=== PATIENT | female | born 1960 | race Caucasian/White ===

== ENCOUNTER → 2016-07-25 | Outpatient (CLI) | payer MEDICAID | LOC: LABWHC1 13:58 | PROVIDERS: ATTEND Family Medicine | DX: E03.9 Hypothyroidism, unspecified (principal) | CPT/HCPCS: 36415; 84439; 84443 ==

== ENCOUNTER → 2016-07-28 | Outpatient (CLI) | payer MEDICAID ==
[2016-07-28 12:19] LABS: Prolactin 11.6 ng/mL (3.0-18.6)
== END | disposition home or self-care (01) ==
LOC: RADXRMAIN 11:14
PROVIDERS: ATTEND Internal Medicine Endocrinology, Diabetes & Metabolism
DX: R53.83 Other fatigue (principal)
CPT/HCPCS: 82533; 84146

== ENCOUNTER → 2016-07-28 | Outpatient (CLI) | payer SELFPAY ==
--- NOTE | 2016-07-28 14:57 | CT ---
EXAMINATION TYPE: CT heart w calcium score DATE OF EXAM: 07/28/2016 11:11 AM COMPARISON: NONE HISTORY: Screening for cardiovascular disorder. 213.9 CT DLP: 44.8 mGycm Automated exposure control for dose reduction was used. CT CALCIUM SCORING Coronary calcium is a marker for plaque (fatty deposits) in a blood vessel or atherosclerosis (harden ing of the arteries). The presence and amount of calcium detected in a coronary artery by the CT sca n, indicates the presence and amount of atherosclerotic plaque. These calcium deposits appear years before the development of heart disease symptoms such as chest pain and shortness of breath. A calcium score is computed for each of the coronary arteries based upon the volume and density of th e calcium deposits. This can be referred to as your calcified plaque burden. It does not correspond directly to the percentage of narrowing in the artery but does correlate with the severity of the un derlying coronary atherosclerosis. PROCEDURE TECHNIQUE - Prospective Gating was used. Slice thickness: 3mm. Density threshold (HU): 130, Pixel threshold: 3, Algorithm: discrete. RESULTS Region: LM Calcium Score (Agatston): 0 Volume (mm3): 0 Mass (g): 0 Region: RCA Calcium Score ([place]at[place]): 0 Volume (mm3): 0 Mass (g): 0 Region: LAD Calcium Score (Agatston): 0 Volume (mm3): 0 Mass (g): 0 Region: CX Calcium Score (Agatston): 0 Volume (mm3): 0 Mass (g): 0 Total: Calcium Score (Agatston): 0 Volume (mm3): 0 Mass (g): 0 TOTAL CALCIUM SCORE: 0 OTHER: The ascending thoracic aorta at the level of the main pulmonary artery is 3.2 cm. The main pu lmonary artery at the bifurcation is 2.5 cm. IMPRESSION: Calcium Score: 0 Implication: No identifiable plaque. Risk of Coronary Artery Disease: Very low, generally less than 5%.
== END | disposition home or self-care (01) ==
LOC: RADXRMAIN 10:22
PROVIDERS: ATTEND Radiology Diagnostic Radiology
DX: Z53.9 Procedure and treatment not carried out, unspecified reason (principal)

== ENCOUNTER → 2016-09-26 | Outpatient (CLI) | payer MEDICAID | END | disposition home or self-care (01) | LOC: LABWHC1 11:12 | PROVIDERS: ATTEND Internal Medicine Endocrinology, Diabetes & Metabolism | DX: Z53.9 Procedure and treatment not carried out, unspecified reason (principal) ==

== ENCOUNTER → 2016-09-29 | Outpatient (CLI) | payer MEDICAID ==
[2016-09-29 08:43] LABS: CH 32.4; CHCM 33.9; HCT 43.1 % (34.0-46.0); HDW 2.26; HGB 14.7 gm/dL (11.4-16.0); MCH 32.7 pg (25.0-35.0); MCHC 34.1 g/dL (31.0-37.0); MCV 96.1 fL (80.0-100.0); Mean Platelet Volume 7.6; RBC 4.49 m/uL (3.80-5.40); WBC 7.4 k/uL (3.8-10.6)
[2016-09-29 08:53] LABS: ALT 24 U/L (9-52); AST 22 U/L (14-36); Alkaline Phosphatase 97 U/L (38-126); Anion Gap 8 mmol/L; Blood Urea Nitrogen 14 mg/dL (7-17); Calcium 9.3 mg/dL (8.4-10.2); Carbon Dioxide 29 mmol/L (22-30); Chloride 105 mmol/L (98-107); Glucose 92 mg/dL (74-99); Non-African American GFR(MDRD) >60 (>60 ml/min/1.73 sqM); Potassium 4.2 mmol/L (3.5-5.1); Sodium 142 mmol/L (137-145); Total Bilirubin 0.8 mg/dL (0.2-1.3); Total Protein 6.9 g/dL (6.3-8.2)
[2016-09-29 10:43] LABS: Prolactin 7.4 ng/mL (3.0-18.6)
[2016-09-29 11:16] LABS: Vitamin B12 427 pg/mL (239-931)
== END | disposition home or self-care (01) ==
LOC: RADXRMAIN 08:05
PROVIDERS: ATTEND Internal Medicine Endocrinology, Diabetes & Metabolism
DX: R53.83 Other fatigue (principal)
CPT/HCPCS: 80053; 82024; 82533; 82607; 84146; 85027

== ENCOUNTER → 2016-10-10 | Outpatient (CLI) | payer MEDICAID ==
[~2016-10-10] MED LIST: COSYNTROPIN 0.25 MG VIAL IVP NR; SODIUM CHLORIDE 0.9% 250 ML in EMPTY BAG 1 BAG IV PRN; SODIUM CHLORIDE 0.9% 500 ML in EMPTY BAG 1 BAG IV PRN
[2016-10-10 14:48] VITALS: BP 109/64; PULSE 69; RESP 16; TEMP 98.1
== END ==
LOC: PROCWHC3 14:28
PROVIDERS: ATTEND Internal Medicine Endocrinology, Diabetes & Metabolism
DX: E03.8 Other specified hypothyroidism (principal); R53.83 Other fatigue
CPT/HCPCS: 82533; 82024; 96374; J0834

== ENCOUNTER → 2017-01-05 | Outpatient (CLI) | payer MEDICAID | END | disposition home or self-care (01) | LOC: RADXRMAIN 08:14 | PROVIDERS: ATTEND Internal Medicine Endocrinology, Diabetes & Metabolism | DX: E03.8 Other specified hypothyroidism (principal); R53.83 Other fatigue | CPT/HCPCS: 84439; 84443; 84481 ==

== ENCOUNTER → 2017-06-23 | Outpatient (CLI) | payer MEDICAID ==
--- NOTE | 2017-06-26 09:16 | MM ---
Reason for exam: screening (asymptomatic). Last mammogram was performed 1 year and 7 months ago. History: Patient is postmenopausal and had first child at age 32. Family history of breast cancer in sister at age 64. Benign right breast aspiration of the right breast, February 01, 2011. Benign right breast aspiration additional of the right breast, February 01, 2011. Benign right breast aspiration additional of the right breast, February 01, 2011. Benign left breast needle localization of the left breast, March 20, 2009. Benign left US cyst aspiration of the left breast, March 09, 2009. Benign US left guided VAD of the left breast, March 09, 2009. Took hormonal contraceptives for 10 years beginning at age 19. Taking unspecified hormones for 13 years beginning at age 33. Physical Findings: A clinical breast exam by your physician is recommended on an annual basis and results should be correlated with mammographic findings. MG 3D Screening Mammo W/Cad Bilateral CC and MLO view(s) were taken. Prior study comparison: November 25, 2015, bilateral MG 3d screening mammo w/cad. May 13, 2014, bilateral MG screening mammo w CAD. The breast tissue is heterogeneously dense. This may lower the sensitivity of mammography. There is no discrete abnormality. ASSESSMENT: Benign, BI-RAD 2 RECOMMENDATION: Routine screening mammogram of both breasts in 1 year.
== END ==
LOC: RADMAMWWP 10:16
PROVIDERS: ATTEND Obstetrics & Gynecology
DX: Z12.31 Encounter for screening mammogram for malignant neoplasm of breast (principal)
CPT/HCPCS: 77063; 77067

== ENCOUNTER 2017-11-28 08:59 | Emergency (ER) | payer MEDICAID ==
[2017-11-28 09:06] VITALS: RESP 16
[2017-11-28] MEDS ORDERED: SODIUM CHLORIDE 0.9% 500 ML IV STA (09:26)
[2017-11-28] MEDS ORDERED: LIDOCAINE 4% CREAM 5 GM TUBE TOPICAL ONE (09:26)
--- NOTE | 2017-11-28 09:31 | ED ---
Abdominal Pain HPI - General Chief Complaint: Abdominal Pain Stated Complaint: Abd/rectal pain Time Seen by Provider: 11/28/17 09:17 Source: patient, RN notes reviewed Mode of arrival: ambulatory Limitations: no limitations - History of Present Illness Initial Comments: 56-year-old female presented to the emergency Department chief complaint of rectal pain. She states she's been having increasing rectal bleeding the last couple weeks. She did see her PCP yesterday who gave her Anusol suppositories. She states she's been using this but symptoms keep worsening. She states the pain is so unbearable. She states she has deep rectal pain and mild external pain. Patient states that she's always had some issues going to the bathroom states that she pushes on her buttocks region and states that more stool usually comes out she states also feels like a slight pocket. Patient has been evaluated past by colonoscopy 3 years ago and by specialists for possible fissures, fistulas. Patient states there is no major findings. Patient has no history of colon issues. Patient denies any fever, chills. She states she has had intermittent rectal bleeding with bowel movements. - Related Data Home Medications Medication Instructions Recorded Confirmed Docusate [Colace] 100 mg PO HS 11/28/17 11/28/17 Levothyroxine Sodium [Tirosint] 100 mcg PO HS 11/28/17 11/28/17 Allergies Allergy/AdvReac Type Severity Reaction Status Date / Time No Known Allergies Allergy Verified 11/28/17 09:18 Review of Systems ROS Statement: Those systems with pertinent positive or pertinent negative responses have been documented in the HPI. ROS Other: All systems not noted in ROS Statement are negative. Past Medical History Past Medical History: Thyroid Disorder Additional Past Medical History / Comment(s): Change in Bowel Habits, Incontinence of Stool at times. yasmeen, arthritis History of Any Multi-Drug Resistant Organisms: None Reported Past Surgical History: Uterine Ablation Additional Past Surgical History / Comment(s): eye sx age 2 and 4,. cataract sx bilat eyes multiple times. colonoscopy 2013 and 2010. Past Anesthesia/Blood Transfusion Reactions: No Reported Reaction Past Psychological History: Anxiety Smoking Status: Current every day smoker Past Alcohol Use History: None Reported Past Drug Use History: None Reported - Past Family History Sister(s) Family Medical History: Cancer (breast cancer) Mother Family Medical History: No Reported History General Exam Limitations: no limitations General appearance: alert, in no apparent distress Head exam: Present: atraumatic, normocephalic, normal inspection Eye exam: Present: normal appearance, PERRL, EOMI. Absent: scleral icterus, conjunctival injection, periorbital swelling ENT exam: Present: normal exam, mucous membranes moist Respiratory exam: Present: normal lung sounds bilaterally. Absent: respiratory distress, wheezes, rales, rhonchi, stridor Cardiovascular Exam: Present: regular rate, normal rhythm, normal heart sounds. Absent: systolic murmur, diastolic murmur, rubs, gallop, clicks GI/Abdominal exam: Present: soft, normal bowel sounds. Absent: distended, tenderness, guarding, rebound, rigid Rectal exam: Present: hemorrhoids, other (Exam performed with Michelle RN). Absent: normal inspection (Mild erythema, excoriation possible small fissure noted) Skin exam: Present: warm, dry, intact, normal color. Absent: rash Course Vital Signs 11/28/17 09:03 Temperature 97.9 F Pulse Rate 84 Respiratory 16 Rate Blood Pressure 114/71 O2 Sat by Pulse 96 Oximetry - Reevaluation(s) Reevaluation #1: 11/28/17 10:48 Patient reevaluated and updated on results. She did state that the lidocaine cream helped tremendously. She was updated on CT results findings of stool impaction. Medical Decision Making - Medical Decision Making 56-year-old female presented for rectal pain. Patient does have some irritation from excoriation. She'll continue Anusol and lidocaine cream. Patient does have evidence of impacted stool. We did discuss digital disimpaction though she is too uncomfortable at this time to have this performed. Patient will be discharged advised to continue softeners or suppositories. - Lab Data Result diagrams: 11/28/17 09:40 11/28/17 09:40 Lab Results 11/28/17 11/28/17 11/28/17 Range/Units 09:40 09:40 09:40 WBC 6.6 (3.8-10.6) k/uL RBC 4.51 (3.80-5.40) m/uL Hgb 13.9 (11.4-16.0) gm/dL Hct 43.0 (34.0-46.0) % MCV 95.4 (80.0-100.0) fL MCH 30.8 (25.0-35.0) pg MCHC 32.3 (31.0-37.0) g/dL RDW 13.1 (11.5-15.5) % Plt Count 243 (150-450) k/uL Neutrophils % 53 % Lymphocytes % 37 % Monocytes % 5 % Eosinophils % 2 % Basophils % 1 % Neutrophils # 3.5 (1.3-7.7) k/uL Lymphocytes # 2.5 (1.0-4.8) k/uL Monocytes # 0.3 (0-1.0) k/uL Eosinophils # 0.1 (0-0.7) k/uL Basophils # 0.1 (0-0.2) k/uL Sodium 139 (137-145) mmol/L Potassium 4.2 (3.5-5.1) mmol/L Chloride 106 (98-107) mmol/L Carbon Dioxide 26 (22-30) mmol/L Anion Gap 7 mmol/L BUN 9 (7-17) mg/dL Creatinine 0.70 (0.52-1.04) mg/dL Est GFR (CKD-EPI)AfAm >90 (>60 ml/min/1.73 sqM) Est GFR (CKD-EPI)NonAf >90 (>60 ml/min/1.73 sqM) Glucose 83 (74-99) mg/dL Calcium 9.3 (8.4-10.2) mg/dL Total Bilirubin 0.7 (0.2-1.3) mg/dL AST 24 (14-36) U/L ALT 32 (9-52) U/L Alkaline Phosphatase 83 (38-126) U/L Total Protein 6.8 (6.3-8.2) g/dL Albumin 4.0 (3.5-5.0) g/dL Amylase 84 (30-110) U/L Lipase 291 (23-300) U/L Urine Color Yellow Urine Appearance Clear (Clear) Urine pH 6.0 (5.0-8.0) Ur Specific [place] 1.015 (1.001-1.035) Urine Protein Negative (Negative) Urine Glucose (UA) Trace H (Negative) Urine Ketones Negative (Negative) Urine Blood Small H (Negative) Urine Nitrite Negative (Negative) Urine Bilirubin Negative (Negative) Urine Urobilinogen <2.0 (<2.0) mg/dL Ur Leukocyte Esterase Negative (Negative) Urine RBC 6 H (0-5) /hpf Urine WBC <1 (0-5) /hpf Ur Squamous Epith Cells <1 (0-4) /hpf Hyaline Casts 1 (0-2) /lpf Urine Mucus Rare H (None) /hpf Disposition Clinical Impression: Rectal pain, Fecal impaction in rectum Disposition: HOME SELF-CARE Condition: Stable Instructions: Rectal Pain (ED) Additional Instructions: Please return to the Emergency Department if symptoms worsen or any other concerns. Is patient prescribed a controlled substance at d/c from ED?: No Referrals: Dennis Arboleda MD [Primary Care Provider] - 1-2 days Time of Disposition: 10:50
[2017-11-28 09:55] LABS: Appearance,Urine Clear (Clear); Basophils # (A) 0.1 k/uL (0-0.2); Basophils % (A) 1 %; Bilirubin,Urine Negative (Negative); Blood,Urine Small (Negative); Color,Urine Yellow; Eosinophils # (A) 0.1 k/uL (0-0.7); Eosinophils % (A) 2 %; Glucose,Urine (UA) Trace (Negative); HGB 13.9 gm/dL (11.4-16.0); Hyaline Casts,Urine 1 /lpf (0-2); Ketones,Urine Negative (Negative); Leukocyte Esterase,Urine Negative (Negative); Lymphocytes # (A) 2.5 k/uL (1.0-4.8); Lymphocytes % (A) 37 %; MCH 30.8 pg (25.0-35.0); MCHC 32.3 g/dL (31.0-37.0); MCV 95.4 fL (80.0-100.0); Mean Platelet Volume 6.9; Monocytes # (A) 0.3 k/uL (0-1.0); Monocytes % (A) 5 %; Mucus,Urine Rare /hpf; Neutrophils # (A) 3.5 k/uL (1.3-7.7); Neutrophils % (A) 53 %; Nitrite,Urine Negative (Negative); Platelet Count 243 k/uL (150-450); Protein,Urine Negative (Negative); RBC 4.51 m/uL (3.80-5.40); RBC,Urine 6 /hpf (0-5); RDW 13.1 % (11.5-15.5); Specific Gravity,Urine 1.015 (1.001-1.035); Squamous Epithelial Cell,Urine <1 /hpf (0-4); Urobilinogen,Urine <2.0 mg/dL (<2.0); WBC 6.6 k/uL (3.8-10.6); WBC,Urine <1 /hpf (0-5)
[2017-11-28 10:06] LABS: ALT 32 U/L (9-52); AST 24 U/L (14-36); Alkaline Phosphatase 83 U/L (38-126); Amylase 84 U/L (30-110); Anion Gap 7 mmol/L; Blood Urea Nitrogen 9 mg/dL (7-17); Calcium 9.3 mg/dL (8.4-10.2); Carbon Dioxide 26 mmol/L (22-30); Chloride 106 mmol/L (98-107); Glucose 83 mg/dL (74-99); Lipase 291 U/L (23-300); Potassium 4.2 mmol/L (3.5-5.1); Sodium 139 mmol/L (137-145); Total Bilirubin 0.7 mg/dL (0.2-1.3); Total Protein 6.8 g/dL (6.3-8.2)
--- NOTE | 2017-11-28 10:32 | CT ---
EXAMINATION TYPE: CT abdomen pelvis w con DATE OF EXAM: 11/28/2017 COMPARISON: 01/29/2015 INDICATION: Rectal pain, occasional bloody stool DLP: 1286 mGycm, Automated exposure control for dose reduction was used. CONTRAST: 100 mL of Isovue 300. Study performed without Oral Contrast TECHNIQUE: Axial images were obtained from above the diaphragm to the pubic rami in the axial plane a t 5 mm thick sections. Reconstructed images are reviewed on the computer in the coronal plane. FINDINGS: Limited CT sections are obtained the lung bases. The lung bases are clear. CT ABDOMEN: Liver: Normal Spleen: Normal Pancreas: Normal Adrenal glands: The adrenal glands are normal. Gallbladder: Normal Kidneys: No masses are evident. No hydronephrosis is present. No cysts are present. Delayed images were obtained through the kidneys, which remain unremarkable. Aorta: Vascular calcification is within the aorta. Inferior vena cava: Normal. CT PELVIS: There is some small bowel loops which are slightly prominent and may has some mild wall thickening wi thin the mid to right lower quadrant. Some similar appearances in the left upper quadrant proximal je junum. Correlate for jejunitis. This is an interval change from comparison. Fecal debris is at the le carola the rectum. Appendix: Normal as visualized. No adjacent inflammatory changes. Urinary bladder: Normal. Genitourinary structures: Uterus is unremarkable. Adnexal regions are clear. No free fluid is within the pelvis. Osseous structures: No suspicious lytic or sclerotic lesions. IMPRESSIONS: 1. There is some mild wall thickening with mild prominence of proximal jejunum. Correlate for jejuni tis.
[2017-11-28 11:32] VITALS: BP 133/62; PULSE 71; TEMP 98.2
== END 2017-11-28 11:33 | disposition home or self-care (01) ==
LOC: EC 08:59
DX: K56.41 Fecal impaction (principal); E07.9 Disorder of thyroid, unspecified; F17.200 Nicotine dependence, unspecified, uncomplicated; Z98.890 Other specified postprocedural states; Z79.899 Other long term (current) drug therapy
CPT/HCPCS: 36415; 80053; 82150; 83690; 85025; 81001; 74177; 99284; 96360; Q9967

== ENCOUNTER → 2018-01-18 | Outpatient (CLI) | payer MEDICAID | END | disposition home or self-care (01) | LOC: LAB 08:08 | PROVIDERS: ATTEND Internal Medicine Endocrinology, Diabetes & Metabolism | DX: E03.8 Other specified hypothyroidism (principal) | CPT/HCPCS: 84443 ==

== ENCOUNTER → 2018-08-16 | Outpatient (CLI) | payer MEDICAID | END | disposition home or self-care (01) | LOC: LAB 11:03 | PROVIDERS: ATTEND Internal Medicine Endocrinology, Diabetes & Metabolism | DX: E03.8 Other specified hypothyroidism (principal) | CPT/HCPCS: 84443 ==

== ENCOUNTER → 2019-03-11 | Outpatient (CLI) | payer MEDICAID | LOC: LAB 08:00 | PROVIDERS: ATTEND Internal Medicine Endocrinology, Diabetes & Metabolism | DX: E03.8 Other specified hypothyroidism (principal) | CPT/HCPCS: 84443 ==

== ENCOUNTER → 2019-06-25 | Outpatient (CLI) | payer MEDICAID ==
--- NOTE | 2019-06-25 08:09 | XR ---
EXAMINATION TYPE: XR ankle complete RT, XR foot complete RT DATE OF EXAM: 06/25/2019 CLINICAL HISTORY: Lateral pain. TECHNIQUE: Frontal, lateral and oblique images of the right ankle and foot are obtained. COMPARISON: None. FINDINGS: There is no acute fracture/dislocation evident in the right ankle. The ankle mortise appe ars within normal limits. Mild diffuse subcutaneous edema. Occasional phlebolith. Small to moderate s ize superior and inferior calcaneal spurs. There is no acute fracture or dislocation evident in the right foot. The joint spaces in the right f oot are preserved. Accessory navicular bone noted near medial base of navicular. Some flexion of the toes is present. Mild diffuse subcutaneous edema. IMPRESSION: As above.
== END | disposition home or self-care (01) ==
LOC: RADXRMAIN 07:38
PROVIDERS: ATTEND Family Medicine
DX: M77.31 Calcaneal spur, right foot (principal); R60.0 Localized edema; M21.271 Flexion deformity, right ankle and toes; S93.401A Sprain of unspecified ligament of right ankle, initial encounter

== ENCOUNTER → 2019-09-02 | Outpatient (CLI) | payer MEDICAID | END | disposition home or self-care (01) | LOC: RADXRMAIN 12:20 | PROVIDERS: ATTEND Internal Medicine Endocrinology, Diabetes & Metabolism | DX: E03.8 Other specified hypothyroidism (principal) | CPT/HCPCS: 84443 ==

== ENCOUNTER → 2019-12-24 | Outpatient (CLI) | payer MEDICAID ==
[2019-12-24 14:23] VITALS: BP 97/61; PULSE 72; RESP 18; TEMP 98.1
--- NOTE | 2019-12-24 16:31 | P.HPOB ---
History of Present Illness H&P Date: 12/24/19 Chief Complaint: The patient is here for her routine gynecologic exam and ma mmogram. This is a 59-year-old 013 with an LMP of 2007. The patient continues to have some vulvar irritation intermittently. Recently she has noticed a vaginal odor and pruritus of the vulva. She denies any unusual discharge at this time. She has a history of lichen sclerosus of the vulva as well as a history of vulvar candidiasis that improved with antifungal medication. She is otherwise without complaints and denies any postmenopausal bleeding.. Review of Systems The patient has gained 8 pounds over the last year. She denies respiratory, cardiac, or G.I. problems. Past Medical History Past Medical History: Thyroid Disorder Additional Past Medical History / Comment(s): hypothyroidism, arthritis. 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 Lichen sclerosis of the vulva. History of Any Multi-Drug Resistant Organisms: None Reported Past Surgical History: Uterine Ablation Additional Past Surgical History / Comment(s): eye sx age 2 and 4, endometrial ablation in 2007. Left breast lumpectomy which was benign, cataract sx bilat eyes multiple times, colonoscopy 2013 and 2010. 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 - Past Family History Sister(s) Family Medical History: Cancer Additional Family Medical History / Comment(s): Breast cancer. Mother Family Medical History: No Reported History Medications and Allergies Home Medications Medication Instructions Recorded Confirmed Type Docusate [Colace] 100 mg PO HS 11/28/17 12/24/19 History Levothyroxine Sodium [Tirosint] 100 mcg PO HS 11/28/17 12/24/19 History Escitalopram [Lexapro] 20 mg PO DAILY 09/18/18 12/24/19 History Triamcinolone 0.1% Ointment 1 applic TOPICAL BID PRN #30 gm 09/18/18 12/24/19 Rx [Kenalog 0.1% Ointment] metroNIDAZOLE [Flagyl] 500 mg PO BID 7 Days #14 tab 10/03/18 12/24/19 Rx Allergies Allergy/AdvReac Type Severity Reaction Status Date / Time No Known Allergies Allergy Verified 12/24/19 14:04 Exam Vital Signs Temp Pulse Resp BP Pulse Ox 12/24/19 14:10 98.1 F 72 18 97/61 96 Intake and Output 12/24/19 12/24/19 12/24/19 06:59 14:59 22:59 Other: Weight 87.09 kg Height 5 feet 9 inches, weight 192 pounds, BMI 28.4. This is a well-developed well-nourished white female who is alert and oriented times 3 in no acute distress. HEENT: Within normal limits. NECK: Supple without mass or thyromegaly. CHEST AND LUNGS: Clear to auscultation. HEART: Regular rate and rhythm. BREASTS: Are without mass or discharge. AXILLARY EXAM: Negative for adenopathy. BACK: Negative for CVA tenderness. ABDOMEN: Soft, nontender, without palpable masses. PELVIC EXAM: External genitalia reveals minimal pallor with mild generalized vulvar inflammation and mild erythema. There are no focal lesions. Cervix and vagina appear normal with mild atrophy. There is no unusual discharge. There is no evidence of prolapse. The uterus is midposition, nongravid size and nontender. There are no palpable adnexal masses or tenderness. RECTAL EXAM: Rectovaginal exam is negative for mass or tenderness and is negative for occult blood. EXTREMITIES: Nontender. IMPRESSION: 1. 59-year-old menopausal female with intermittent vulvar pruritus and mild generalized vulvitis. Differential diagnosis includes lichen sclerosis, vaginitis, Kaleigh vaginitis, bacterial vaginosis, or, less likely, trichomoniasis. PLAN: 1. Pap smear was deferred since she had a normal one on 09/18/2018. 2. Self breast awareness was discussed with the patient. 3. Screening mammogram will be done today. 4. Affirm testing has been obtained from the vagina for kaleigh, Gardnerella, and Trichomonas. If these are negative, consider resuming corticosteroid treatment. 5. Osteoporosis prevention was discussed. I have stressed the importance of adequate calcium, vitamin D and regular exercise. Recommended amounts of calcium and vitamin D were also discussed. 6. She was advised to return in one year for her annual well woman exam and as needed.
[2019-12-25 04:56] LABS: Gardnerella Negative (Negative); Source Vagina; Trichomonas Negative (Negative)
--- NOTE | 2019-12-26 10:37 | MM ---
Reason for exam: screening (asymptomatic). Last mammogram was performed 1 year and 3 months ago. History: Patient is postmenopausal and had first child at age 32. Family history of breast cancer in sister at age 64. Benign right breast aspiration of the right breast, February 01, 2011. Benign right breast aspiration additional of the right breast, February 01, 2011. Benign right breast aspiration additional of the right breast, February 01, 2011. Benign left breast needle localization of the left breast, March 20, 2009. Benign left US cyst aspiration of the left breast, March 09, 2009. Benign US left guided VAD of the left breast, March 09, 2009. Took hormonal contraceptives for 10 years beginning at age 19. Taking unspecified hormones for 13 years beginning at age 33. Physical Findings: A clinical breast exam by your physician is recommended on an annual basis and results should be correlated with mammographic findings. MG 3D Screening Mammo W/Cad Bilateral CC and MLO view(s) were taken. Prior study comparison: September 18, 2018, bilateral MG 3d screening mammo w/cad. June 23, 2017, bilateral MG 3d screening mammo w/cad. There are scattered fibroglandular densities. No significant changes when compared with prior studies. ASSESSMENT: Benign, BI-RAD 2 RECOMMENDATION: Routine screening mammogram of both breasts in 1 year.
--- NOTE | 2019-12-26 14:15 | P.PN ---
Progress Note - Text Progress Note Date: 12/26/19 Affirm testing done on 12/24/19 was negative for Kaleigh, Gardnerella, and Trichomonas. The patient was notified by phone. Since previous vulvar biopsy for similar symptoms showed signs of yeast and she had symptomatic improvement with an antifungal agent, will have a trial of Lotrisone cream, BID x 14 days, then only as needed. The prescription was sent electronically to [facility] pharmacy at [facility]. She will call if symptoms do not improve or if problems.
== END | disposition home or self-care (01) ==
LOC: WWCWWP 13:55
PROVIDERS: ATTEND Obstetrics & Gynecology
DX: Z12.31 Encounter for screening mammogram for malignant neoplasm of breast (principal); N76.2 Acute vulvitis; L29.2 Pruritus vulvae
CPT/HCPCS: 77063; 77067; 87480; 87510; 87660

== ENCOUNTER → 2020-05-13 | Outpatient (CLI) | payer MEDICAID | END | disposition home or self-care (01) | LOC: LAB 09:50 | PROVIDERS: ATTEND Internal Medicine Endocrinology, Diabetes & Metabolism | DX: E03.8 Other specified hypothyroidism (principal) | CPT/HCPCS: 84443 ==

== ENCOUNTER → 2020-11-11 | Outpatient (CLI) | payer MEDICAID | END | disposition home or self-care (01) | LOC: LABMAIN 10:38 | PROVIDERS: ATTEND Internal Medicine Endocrinology, Diabetes & Metabolism | DX: E03.8 Other specified hypothyroidism (principal) | CPT/HCPCS: 36415; 84443 ==

== ENCOUNTER → 2021-01-26 | Outpatient (CLI) | payer MEDICAID ==
[2021-01-26 09:49] LABS: Appearance,Urine Clear (Clear); Bacteria,Urine Rare /hpf; Bilirubin,Urine Negative (Negative); Blood,Urine Small (Negative); Color,Urine Light Yellow; Glucose,Urine (UA) Negative (Negative); Ketones,Urine Negative (Negative); Leukocyte Esterase,Urine Negative (Negative); Mucus,Urine Rare /hpf; Nitrite,Urine Negative (Negative); PH, Urine 5.5 (5.0-8.0); Protein,Urine Negative (Negative); RBC,Urine 3 /hpf (0-5); Specific Gravity,Urine 1.012 (1.001-1.035); Urobilinogen,Urine <2.0 mg/dL (<2.0)
[2021-01-26 10:09] LABS: Basophils % (A) 1 %; Eosinophils # (A) 0.1 k/uL (0-0.7); Eosinophils % (A) 2 %; HCT 45.7 % (34.0-46.0); HGB 14.8 gm/dL (11.4-16.0); Lymphocytes # (A) 2.2 k/uL (1.0-4.8); Lymphocytes % (A) 35 %; MCHC 32.4 g/dL (31.0-37.0); MCV 98.9 fL (80.0-100.0); Mean Platelet Volume 8.6; Monocytes # (A) 0.3 k/uL (0-1.0); Monocytes % (A) 4 %; Neutrophils # (A) 3.7 k/uL (1.3-7.7); Neutrophils % (A) 57 %; Platelet Count 234 k/uL (150-450); RBC 4.62 m/uL (3.80-5.40); RDW 12.5 % (11.5-15.5); WBC 6.4 k/uL (3.8-10.6)
[2021-01-26 10:14] LABS: ALT 16 U/L (4-34); AST 26 U/L (14-36); African American GFR (CKD) >90 (>60 ml/min/1.73 sqM); Albumin 3.7 g/dL (3.5-5.0); Alkaline Phosphatase 89 U/L (38-126); Anion Gap 4 mmol/L; Blood Urea Nitrogen 12 mg/dL (7-17); Calcium 9.2 mg/dL (8.4-10.2); Carbon Dioxide 30 mmol/L (22-30); Chloride 104 mmol/L (98-107); Glucose 122 mg/dL (74-99); Non-African American GFR(CKD) >90 (>60 ml/min/1.73 sqM); Sodium 138 mmol/L (137-145); Total Bilirubin 0.9 mg/dL (0.2-1.3); Total Protein 6.6 g/dL (6.3-8.2)
[2021-01-26 11:32] LABS: T4, Free (Free Thyroxine) 1.53 ng/dL (0.78-2.19)
[2021-01-26 20:26] LABS: Chol/HDL Ratio 2.96 Ratio; LDL Cholesterol,Calculated 122.6 mg/dL (0.0-131.0); VLDL Calculation 19.12 mg/dL (5.00-40.00)
== END | disposition home or self-care (01) ==
LOC: RADXRMAIN 07:35
PROVIDERS: ATTEND Family Medicine
DX: Z00.00 Encounter for general adult medical examination without abnormal findings (principal)
CPT/HCPCS: 80053; 80061; 81001; 84439; 84443; 85025

== ENCOUNTER 2021-07-15 07:40 | Emergency (ER) | payer MEDICAID ==
[2021-07-15 07:46] VITALS: RESP 20; TEMP 98.1
--- NOTE | 2021-07-15 08:53 | ED ---
General Adult HPI - General Chief complaint: Extremity Injury, Lower Stated complaint: Rt Leg Pain Time Seen by Provider: 07/15/21 08:23 Source: patient Mode of arrival: ambulatory Limitations: no limitations - History of Present Illness Initial comments: Dictation was produced using [employer] dictation software. please excuse any grammatical, word or spelling errors. Chief Complaint: Patient is a 60-year-old female presents to the emergency department for right gluteus pain. History of Present Illness: 60-year-old female she presents emergency department for 2 days of right gluteus pain. Patient denies any trauma to that area. Patient states when she stands or bears weight on her right hip she has pain that shoots down the posterior aspect of her right lower extremity. Patient states that her symptoms slowly worsened. She denies any pain at rest. She really notices whenever she stands. Patient denies any fever. Denies any symptoms to her right knee or right foot. No constitutional symptoms. The ROS documented in this emergency department record has been reviewed and confirmed by me. Those systems with pertinent positive or negative responses have been documented in the HPI. All other systems are other negative and/or noncontributory. PHYSICAL EXAM: General Impression: Alert and oriented x3, not in acute distress HEENT: Normocephalic atraumatic, extra-ocular movements intact, pupils equal and reactive to light bilaterally, mucous membranes moist. Cardiovascular: Heart regular rate and rhythm Chest: Able to complete full sentences, no retractions, no tachypnea Abdomen: abdomen soft, non-tender, non-distended, no organomegaly Musculoskeletal: Pulses present and equal in all extremities, no peripheral edema Motor: no focal deficits noted Neurological: CN II-XII grossly intact, no focal motor or sensory deficits noted Skin: Intact with no visualized rashes Psych: Normal affect and mood ED course: 60-year-old female presents to the emergency department clinical presentation consistent with sciatica arising from the piriformis. Signs upon arrival are within acceptable limits. Physical examination is benign. Hip x-ray is unremarkable. Patient reevaluated at bedside at 9:40 AM found to be stable medical condition. She does have mild degenerative changes to her right hip and right SI joint. Patient notified of her x-ray results. Patient states she will need a work note for today and tomorrow. Work note provided. Patient advised to follow-up with her PCP for outpatient management of sciatica symptoms. - Related Data Home Medications Medication Instructions Recorded Confirmed Docusate [Colace] 100 mg PO HS 11/28/17 12/24/19 Levothyroxine Sodium [Tirosint] 100 mcg PO HS 11/28/17 12/24/19 Escitalopram [Lexapro] 20 mg PO DAILY 09/18/18 12/24/19 Previous Rx's Medication Instructions Recorded metroNIDAZOLE [Flagyl] 500 mg PO BID 7 Days #14 tab 10/03/18 Clotrimazole/Betamethasone Dip 1 applic TOPICAL BID 14 Days #45 gm 12/26/19 [Lotrisone Cream] Allergies Allergy/AdvReac Type Severity Reaction Status Date / Time No Known Allergies Allergy Verified 07/15/21 07:45 Review of Systems ROS Statement: Those systems with pertinent positive or pertinent negative responses have been documented in the HPI. ROS Other: All systems not noted in ROS Statement are negative. Past Medical History Past Medical History: Thyroid Disorder Additional Past Medical History / Comment(s): hypothyroidism, arthritis. 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 Lichen sclerosis of the vulva. History of Any Multi-Drug Resistant Organisms: None Reported Past Surgical History: Uterine Ablation Additional Past Surgical History / Comment(s): eye sx age 2 and 4, endometrial ablation in 2007. Left breast lumpectomy which was benign, cataract sx bilat e yes multiple times, colonoscopy 2013 and 2010. Past Anesthesia/Blood Transfusion Reactions: No Reported Reaction Past Psychological History: Anxiety Smoking Status: Current every day smoker Past Alcohol Use History: None Reported Past Drug Use History: None Reported - Past Family History Sister(s) Family Medical History: Cancer Additional Family Medical History / Comment(s): Breast cancer. Mother Family Medical History: No Reported History General Exam Limitations: no limitations Course Vital Signs 07/15/21 07:43 Temperature 98.1 F Pulse Rate 98 Respiratory 20 Rate Blood Pressure 95/67 O2 Sat by Pulse 96 Oximetry Disposition Clinical Impression: Sciatica Disposition: HOME SELF-CARE Condition: Good Instructions (If sedation given, give patient instructions): Sciatica (ED) Is patient prescribed a controlled substance at d/c from ED?: No Referrals: Grady Pressley [Primary Care Provider] - 1-2 days
--- NOTE | 2021-07-15 09:35 | XR ---
EXAMINATION TYPE: XR Hip Complete RT DATE OF EXAM: 07/15/2021 Comparison: None Clinical History: 60-year-old female sciatica Findings: Mild degenerative spurring of the right hip. Right-sided pelvic phlebolith. Mild degenerative change right SI joint. No acute fracture, subluxation, dislocation. Some facet arthropathy noted in the lowe r lumbar spine. Impression: Mild degenerative change right hip and right SI joint. No acute osseous abnormality seen.
[2021-07-15 10:02] VITALS: BP 97/65; PULSE 74
== END 2021-07-15 10:02 | disposition home or self-care (01) ==
LOC: EC 07:40
DX: M54.30 Sciatica, unspecified side (principal); E07.9 Disorder of thyroid, unspecified; F17.200 Nicotine dependence, unspecified, uncomplicated; Z79.899 Other long term (current) drug therapy
CPT/HCPCS: 73502; 99283

== ENCOUNTER → 2021-08-17 | Outpatient (CLI) | payer MEDICAID ==
[2021-08-17 14:05] VITALS: BP 114/74; PULSE 79; RESP 18; TEMP 98.4
--- NOTE | 2021-08-17 15:14 | P.HPOB ---
History of Present Illness H&P Date: 08/17/21 Chief Complaint: The patient is here for her routine gynecologic exam and ma mmogram. This is a 60-year-old 013 with an LMP of 2007. The patient has been experiencing more vulvar pruritus. She has a history of lichen sclerosus of the vulva. She has been using clobetasol which has been helpful, but she still has itching. She previously had significant improvement when she was treated for vulvar candidiasis with antifungal medication. In 2019, she seemed to do much better on Lotrisone cream. She had not been using prescription cream until she started using her sisters clobetasol recently. She denies vaginal discharge but has noticed a vaginal odor. Review of Systems The patient has lost 17 pounds over the last year. She has been trying to lose weight. She denies respiratory, cardiac, or G.I. problems. Past Medical History Past Medical History: Thyroid Disorder Additional Past Medical History / Comment(s): hypothyroidism, arthritis. PAST INDUSTRIAL ENGINEERING ANALYST HISTORY: She has no history of STDs. Lichen sclerosis of the vulva. History of Any Multi-Drug Resistant Organisms: None Reported Past Surgical History: Uterine Ablation Additional Past Surgical History / Comment(s): eye sx age 2 and 4, endometrial ablation in 2007. Left breast lumpectomy which was benign, cataract sx bilat eyes multiple times, colonoscopy 2013 and 2010. 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 - Past Family History Sister(s) Family Medical History: Cancer Additional Family Medical History / Comment(s): Breast cancer. Mother Family Medical History: No Reported History Medications and Allergies Home Medications Medication Instructions Recorded Confirmed Type Clotrimazole/Betamethasone Dip 1 applic TOPICAL BID 14 Days #45 gm 12/26/19 08/17/21 Rx [Lotrisone Cream] Levothyroxine Sodium [Synthroid] 100 mcg PO DAILY 08/17/21 08/17/21 History buPROPion HCL [Wellbutrin XL] 300 mg PO DAILY 08/17/21 08/17/21 History Allergies Allergy/AdvReac Type Severity Reaction Status Date / Time No Known Allergies Allergy Verified 08/17/21 13:58 Exam Vital Signs Temp Pulse Resp BP Pulse Ox 08/17/21 14:03 98.4 F 79 18 114/74 94 L Intake and Output 08/16/21 08/17/21 08/17/21 22:59 06:59 14:59 Other: Weight 79.379 kg Height 5 feet 10 inches, weight 175 pounds, BMI 25.1. This is a well-developed well-nourished white female who is alert and oriented times 3 in no acute distress. HEENT: Within normal limits. NECK: Supple without mass or thyromegaly. CHEST AND LUNGS: Clear to auscultation. HEART: Regular rate and rhythm. BREASTS: Are without mass or discharge. AXILLARY EXAM: Negative for adenopathy. BACK: Negative for CVA tenderness. ABDOMEN: Soft, nontender, without palpable masses. PELVIC EXAM: External genitalia reveals mild atrophy with mild generalized erythema and a dry appearance with slight pallor. There are a couple of scratched areas in otherwise no other focal abnormalities. Cervix and vagina appear normal with mild atrophy. There is no unusual discharge. There is no evidence of prolapse. The uterus is midposition, nongravid size and nontender. There are no palpable adnexal masses or tenderness. RECTAL EXAM: Rectovaginal exam is negative for mass or tenderness and is negative for occult blood. EXTREMITIES: Nontender. IMPRESSION: 1. 60-year-old menopausal female with history of lichen sclerosus of the vulva with moderate vulvar pruritus. Differential diagnosis will include lichen sclerosis, Kaleigh vaginitis, bacterial vaginosis, or chronic contact vulvitis. PLAN: 1. Pap smear cotest was performed. 2. Self breast awareness was discussed with the patient. We have also discussed symptoms associated with inflammatory breast cancer. 3. Screening mammogram will be done today. 4. Affirm vaginitis panel was obtained from the vagina. This will be used to check for Kaleigh, Gardnerella , and Trichomonas. 5. The patient will be prescribed Lotrisone cream which she continues twice a day as needed for vulvar itching. She seemed to have done well with this in 2019. I have also recommended that she avoid over washing with soap and to try to avoid scratching. She can also use a thin layer of petroleum jelly as a protective layer once a day. If symptoms are not improving, she was instructed to call and we can put her back on the clobetasol ointment. 6.Osteoporosis prevention was discussed. I have stressed the importance of adequate calcium, vitamin D and regular exercise. Recommended amounts of calcium and vitamin D were also discussed. I have recommended baseline bone density testing. The order slip was given to the patient for this. 7. She has completed her Covid vaccination series and did receive a booster. 8 She was advised to return in one year for her annual well woman exam And as needed.
--- NOTE | 2021-08-18 11:40 | MM ---
Reason for Exam: Screening (asymptomatic). Last mammogram was performed 1 year(s) and 8 month(s) ago. Patient History: Menarche at age 12. First Full-Term at age 32. Late child-bearing (after 30). Postmenopausal. Hormonal Contraceptives for 10 years from age 19 until age 31. 02/01/2011, Benign Cyst Aspiration on the right side. 02/01/2011, Benign Cyst Aspiration on the right side. 02/01/2011, Benign Cyst Aspiration on the right side. 03/20/2009, Benign Excisional Biopsy on the left side. 03/09/2009, Benign Cyst Aspiration on the left side. 03/09/2009, Benign Core Biopsy on the left side. Sister had breast cancer, right, age 64. Risk Values: Columba 5 year model risk: 4.5%. NCI Lifetime model risk: 20.1%. Film Views: Bilateral CC views were taken. Bilateral MLO views were taken. Prior Study Comparison: 06/23/2017 Bilateral Screening Mammogram, [facility]. 09/18/2018 Bilateral Screening Mammogram, [facility]. 12/24/2019 Bilateral Screening Mammogram, [facility]. Tissue Density: The breast tissue is heterogeneously dense. This may lower the sensitivity of mammography. Findings: Analyzed By CAD. Occasional scattered benign-appearing round and punctate calcification bilaterally is redemonstrated. Chronic nodularity anteriorly outer aspect right breast not significantly changed from last 2 mammograms. Benign-appearing bilateral axillary lymph nodes are redemonstrated. No suspicious new mass or worrisome cluster of microcalcification. Overall Assessment: Benign, BI-RAD 2 Management: Screening Mammogram of both breasts in 1 year. A clinical breast exam by your physician is recommended on an annual basis and results should be correlated with mammographic findings.
[2021-08-18 14:06] LABS: Gardnerella Positive (Negative); Source Vagina; Trichomonas Negative (Negative)
--- NOTE | 2021-08-19 11:38 | P.PN ---
Progress Note - Text Progress Note Date: 08/19/21 Affirm vaginitis panel done 08/17/21 was positive for Gardnerella and negative for Kaleigh and Trichomonas. The patient was notified by phone. A/ Bacterial Vaginosis P/ Metronidazole 500mg PO BID x 7d. The e-prescription was sent to [facility] in [facility]. Call if symptoms not improving or if problems.
== END ==
LOC: WWCWWP 13:37
PROVIDERS: ATTEND Obstetrics & Gynecology
DX: Z12.31 Encounter for screening mammogram for malignant neoplasm of breast (principal); Z01.419 Encounter for gynecological examination (general) (routine) without abnormal findings; Z78.0 Asymptomatic menopausal state; L29.2 Pruritus vulvae; E03.9 Hypothyroidism, unspecified; M19.90 Unspecified osteoarthritis, unspecified site; Z80.3 Family history of malignant neoplasm of breast; F41.9 Anxiety disorder, unspecified; F17.210 Nicotine dependence, cigarettes, uncomplicated
CPT/HCPCS: 77063; 77067; 87480; 87510; 87660

== ENCOUNTER 2021-08-26 06:44 | Day surgery (SDC) | payer MEDICAID ==
[2021-08-25 09:36] VITALS: BMI 25.1
[2021-08-26] MEDS ORDERED: LACTATED RINGERS 1,000 ML IV SCH (06:58)
[2021-08-26 07:04] VITALS: TEMP 97.7
[2021-08-26] MEDS ORDERED: PROPOFOL 10 MG/ML 20 ML VIAL IV ONE (07:39)
[2021-08-26] MEDS ORDERED: LIDOCAINE 2% INJ 20 MG/ML (2 ML VIAL) ONE (07:39)
--- NOTE | 2021-08-26 07:39 | P.GSHP ---
History of Present Illness H&P Date: 08/26/21 CHIEF COMPLAINT: Colon screen HISTORY OF PRESENT ILLNESS: The patient is a 60-year-old female who presents for colon screen. Lower endoscopy was offered for further evaluation and management. PAST MEDICAL HISTORY: Please see list. PAST SURGICAL HISTORY: Please see list. MEDICATIONS: Please see list. ALLERGIES: Please see list. SOCIAL HISTORY: No illicit drug use FAMILY HISTORY: No reports of Crohn disease or ulcerative colitis. REVIEW OF ORGAN SYSTEMS: CONSTITUTIONAL: No reports of fevers or chills. PHYSICAL EXAM: VITAL SIGNS: Stable GENERAL: Well-developed pleasant in no acute distress. HEENT: No scleral icterus. Extraocular movements grossly intact. Moist buccal mucosa. NECK: Supple without lymphadenopathy. CHEST: Unlabored respirations. Equal bilateral excursions. CARDIOVASCULAR: Regular rate and rhythm. Distal 2+ pulses. ABDOMEN: Soft, nontender, nondistended. MUSCULOSKELETAL: No clubbing, cyanosis, or edema. ASSESSMENT: 1. Colon screen. PLAN: 1. Recommend proceeding with a lower endoscopy Past Medical History Past Medical History: Thyroid Disorder Additional Past Medical History / Comment(s): hypothyroidism, Lichen sclerosis of the vulva(finishes antibiotics today-symptoms cleared-). History of Any Multi-Drug Resistant Organisms: None Reported Past Surgical History: Breast Surgery, Uterine Ablation Additional Past Surgical History / Comment(s): eye sx age 2 and 4, Left breast lumpectomy, cataract sx bilat eyes multiple times, colonoscopy Past Anesthesia/Blood Transfusion Reactions: No Reported Reaction Smoking Status: Current every day smoker - Past Family History Sister(s) Family Medical History: Cancer Additional Family Medical History / Comment(s): Breast cancer. Mother Family Medical History: No Reported History Medications and Allergies Home Medications Medication Instructions Recorded Confirmed Type Clotrimazole/Betamethasone Dip 1 applic TOPICAL BID PRN #45 gm 08/17/21 08/26/21 Rx [Lotrisone Cream] Levothyroxine Sodium [Synthroid] 100 mcg PO DAILY 08/17/21 08/26/21 History metroNIDAZOLE [Flagyl] 500 mg PO BID 7 Days #14 tab 08/19/21 08/26/21 Rx buPROPion SR [Wellbutrin SR] 150 mg PO BID 08/25/21 08/26/21 History Allergies Allergy/AdvReac Type Severity Reaction Status Date / Time No Known Allergies Allergy Verified 08/26/21 06:58 Surgical - Exam Vital Signs Temp Pulse Resp BP Pulse Ox 97.7 F 87 16 125/74 98 08/26/21 07:02 08/26/21 07:02 08/26/21 07:02 08/26/21 07:02 08/26/21 07:02
--- NOTE | 2021-08-26 08:08 | P.PCN ---
Date of Procedure: 08/26/21 Description of Procedure: PREOPERATIVE DIAGNOSIS: Personal history of colon polyps Family history malignant colon polyps Colonoscopy screening POSTOPERATIVE DIAGNOSIS: Tubular adenoma sigmoid colon Adenoma of the rectum Sigmoid diverticulosis Internal hemorrhoids, grade 2 External hemorrhoids, grade OPERATION: Colonoscopy to the ileocecal valve Colonoscopy with cold forceps biopsy SURGEON: Macrina Hunt MD. ANESTHESIA: MAC. INDICATIONS: The patient is an 60-year-old male who presents family history of malignant colon polyps and personal history of colon polyps. Last colonoscopy 5 years. Benefits and risks were described and informed consent was obtained. DESCRIPTION OF PROCEDURE: The patient had undergone Sutab prep. The patient had been brought into the operating room and laid in the left lateral decubitus position. After adequate intravenous sedation, the rectum was examined with 2% lidocaine jelly. External hemorrhoids were encountered. The rectal tone was within normal limits. No lesions were palpated in the rectal vault. An Olympus colonoscope was advanced until the cecum, ileocecal valve and appendiceal orifice were clearly viewed. The prep was good. Sigmoid diverticulosis was encountered. Colonic polyps were found and removed. No evidence of focal colitis was found. Retroflexion of the scope demonstrated grade 2 internal hemorrhoids without active bleeding or inflammation. The colon was desufflated. The patient had tolerated the procedure well. Withdrawal time was over 6 minutes. FINDINGS: Aronchick preparation quality scale 2 (1-5) Internal hemorrhoids, grade 2 External hemorrhoids, grade 2. No arteriovenous malformations. Sigmoid diverticulosis Removal of 2 polyps: - Cold forceps biopsy at 15 cm from the anal verge, 4 mm polyp, sigmoid colon - Cold forceps biopsy at 5 cm from the anal verge, 5 mm polyp, rectum No focal colitis. RECOMMENDATIONS: Repeat colonoscopy in 3 years, 2024 Plan - Discharge Summary New Discharge Prescriptions: Continue Clotrimazole/Betamethasone Dip [Lotrisone Cream] 1 applic TOPICAL BID PRN #45 gm PRN Reason: Vulvar itching Levothyroxine Sodium [Synthroid] 100 mcg PO DAILY metroNIDAZOLE [Flagyl] 500 mg PO BID 7 Days #14 tab buPROPion SR [Wellbutrin SR] 150 mg PO BID Discharge Medication List Clotrimazole/Betamethasone Dip [Lotrisone Cream] 1 applic TOPICAL BID PRN #45 gm 08/17/21 [Rx] Levothyroxine Sodium [Synthroid] 100 mcg PO DAILY 08/17/21 [History] metroNIDAZOLE [Flagyl] 500 mg PO BID 7 Days #14 tab 08/19/21 [Rx] buPROPion SR [Wellbutrin SR] 150 mg PO BID 08/25/21 [History] Follow up Appointment(s)/Referral(s): Macrina Hunt MD [STAFF PHYSICIAN] - As Needed Patient Instructions/Handouts: Colorectal Polyps (GEN), Diverticulosis Diet (GEN), Diverticulosis (ED), How to Stop Smoking (DC) Activity/Diet/Wound Care/Special Instructions: Repeat colonoscopy in 3 years, 2024 Discharge Disposition: HOME SELF-CARE
[2021-08-26 08:18] VITALS: BP 98/58; PULSE 90; RESP 17
== END 2021-08-26 09:20 | disposition home or self-care (01) ==
LOC: ORWHC2ENDO 06:44
PROVIDERS: ATTEND Surgery Plastic and Reconstructive Surgery
DX: D12.5 Benign neoplasm of sigmoid colon (principal); D12.8 Benign neoplasm of rectum; K57.30 Diverticulosis of large intestine without perforation or abscess without bleeding; K64.4 Residual hemorrhoidal skin tags; K64.8 Other hemorrhoids; E03.9 Hypothyroidism, unspecified; F17.200 Nicotine dependence, unspecified, uncomplicated; Z80.0 Family history of malignant neoplasm of digestive organs; Z80.3 Family history of malignant neoplasm of breast; Z83.71 Family history of colonic polyps; Z86.010 Personal history of colon polyps
CPT/HCPCS: 45380; 88305; J2704; J2001

== ENCOUNTER → 2022-03-29 | Outpatient (CLI) | payer MEDICAID | END | disposition home or self-care (01) | LOC: RADXRMAIN 11:48 | PROVIDERS: ATTEND Family Medicine | DX: E03.9 Hypothyroidism, unspecified (principal) | CPT/HCPCS: 84439; 84443 ==

== ENCOUNTER → 2022-08-15 | Outpatient (CLI) | payer MEDICAID | END | disposition home or self-care (01) | LOC: LABMAIN 09:09 | PROVIDERS: ATTEND Family Medicine | DX: E03.9 Hypothyroidism, unspecified (principal) | CPT/HCPCS: 84443 ==

== ENCOUNTER → 2022-08-31 | Outpatient (CLI) | payer MEDICAID ==
--- NOTE | 2022-08-31 18:57 | BD ---
EXAMINATION TYPE: Axial Bone Density DATE OF EXAM: 08/31/2022 CLINICAL HISTORY: 61 years old Female. ICD-10 CODE: Z78.0 ASYMPTOMATIC MENOPAUSAL STATE Height: 5 ft 8 1/2 in Weight: 181 FRAX RISK QUESTIONS: Alcohol (3 or more units per day): no Family History (Parent hip fracture): yes Glucocorticoids (More than 3mos): no (Ex: prednisone, prednisolone, methylprednisolone, dexamethasone, and hydrocortisone). History of Fracture in Adulthood: yes Secondary Osteoporosis: 1. Type 1 Diabetes: no 2. Hyperthyroidism: no 3. Menopause before 45: no 4. Malnutrition: no 5. Chronic liver disease: no Rheumatoid Arthritis: no Current Tobacco Use: yes RISK FACTORS HISTORY OF: Surgery to Spine/Hip(right/left)/Wrist (right/left): no Family History of Osteoporosis: yes Active: no Diet low in dairy products/other sources of calcium: no Postmenopausal woman: yes Take estrogen and/or progesterone medications: no Lost more than 2 inches in height since high school: yes Frequent falls: no Poor Health: good Hyperparathyroidism: no Adrenal Insufficiency: no MEDICATIONS: Thyroid Medications: yes Which medication: synthroid How Lon years Additional Medications: synthroid, wellbutrin, Additional History: EXAM MEASUREMENTS: Bone mineral densitometry was performed using the [employer] System. Bone mineral density as measured about the Lumbar spine is: ----- L1-L4(G/cm2): 0.855 T Score Values are as follows: ----- L1: -2.6 ----- L2: -3.2 ----- L3: -2.4 ----- L4: -2.9 ----- L1-L4: -2.7 Z Score Values are as follows: ----- L1: -1.8 ----- L2: -2.4 ----- L3: -1.5 ----- L4: -2.0 ----- L1-L4: -1.9 Bone mineral density has: decreased -15.9 % since study of: 2002 Bone mineral density about the R hip (g/cm2): 0.747 Bone mineral density about the L hip (g/cm2): 0.709 T Score values are as follows: -----R Neck: -2.1 -----L Neck: -2.4 -----R Total: -1.3 -----L Total: -1.4 Z Score values are as follows: -----R Neck: -1.1 -----L Neck: -1.4 -----R Total: -0.6 -----L Total: -0.8 Bone mineral density has: decreased -15.7 % since study of: 2002 FRAX%s: The graph provided illustrates a 20.2 % chance for a major osteoporotic fx and a 3.3 % chance for the hips probability for fx in 10 years time. IMPRESSION: Osteoporosis (T Score less than -2.5). There is increased fracture risk and therapy is usually indicated based on age. Re-Screen 1-2 years. NOTE: T-SCORE=SD OF THE YOUNG ADULT MEAN.
== END | disposition home or self-care (01) ==
LOC: RADBDWWP 07:52
PROVIDERS: ATTEND Obstetrics & Gynecology
DX: M81.0 Age-related osteoporosis without current pathological fracture (principal); M85.89 Other specified disorders of bone density and structure, multiple sites; Z78.0 Asymptomatic menopausal state
CPT/HCPCS: 77080

== ENCOUNTER → 2022-10-11 | Outpatient (CLI) | payer MEDICAID ==
[2022-10-11 09:27] VITALS: BP 106/71; PULSE 84; RESP 16; TEMP 98.7
--- NOTE | 2022-10-11 10:19 | P.HPOB ---
History of Present Illness H&P Date: 10/11/22 Chief Complaint: The patient is here for her routine gynecologic exam and ma mmogram. This is a 61-year-old 013 with an LMP of 2007. The patient is without gynecologic complaints. Review of Systems The patient has gained 14 pounds over the last year. She denies respiratory, cardiac, or G.I. problems. Past Medical History Past Medical History: Osteoarthritis (OA), Thyroid Disorder Additional Past Medical History / Comment(s): hypothyroidism, arthritis. 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 Lichen sclerosis of the vulva. History of Any Multi-Drug Resistant Organisms: None Reported Past Surgical History: Uterine Ablation Additional Past Surgical History / Comment(s): eye sx age 2 and 4, endometrial ablation in 2007. Left breast lumpectomy which was benign, cataract sx bilat eyes multiple times, colonoscopy 2013 and 2010. 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 - Past Family History Sister(s) Family Medical History: Cancer Additional Family Medical History / Comment(s): Breast cancer. Mother Family Medical History: No Reported History Medications and Allergies Home Medications Medication Instructions Recorded Confirmed Type Clotrimazole/Betamethasone Dip 1 applic TOPICAL BID PRN #45 gm 08/17/21 10/11/22 Rx [Lotrisone Cream] Levothyroxine Sodium [Synthroid] 100 mcg PO DAILY 08/17/21 10/11/22 History buPROPion SR [Wellbutrin SR] 150 mg PO BID 08/25/21 10/11/22 History Allergies Allergy/AdvReac Type Severity Reaction Status Date / Time No Known Allergies Allergy Verified 10/11/22 09:21 Exam Vital Signs Temp Pulse Resp BP Pulse Ox 10/11/22 09:22 98.7 F 84 16 106/71 97 Intake and Output 10/10/22 10/11/22 10/11/22 22:59 06:59 14:59 Other: Weight 85.729 kg Height 5 feet 10 inches, weight 189 pounds, BMI 27.1. This is a well-developed well-nourished white female who is alert and oriented times 3 in no acute distress. HEENT: Within normal limits. NECK: Supple without mass or thyromegaly. CHEST AND LUNGS: Clear to auscultation. HEART: Regular rate and rhythm. BREASTS: Are without mass or discharge. AXILLARY EXAM: Negative for adenopathy. BACK: Negative for CVA tenderness. ABDOMEN: Soft, nontender, without palpable masses. PELVIC EXAM: External genitalia reveals mild atrophy with minimal generalized pallor extending to repair the anal areas. There are no focal lesions or areas of excoriation or ulceration. Cervix and vagina appear normal with mild atrophy. There is no unusual discharge. There is no evidence of prolapse. The uterus is midposition, nongravid size and nontender. There are no palpable adnexal masses or tenderness. RECTAL EXAM: Rectovaginal exam is negative for mass or tenderness and is negative for occult blood. EXTREMITIES: Nontender. IMPRESSION: 1. 61-year-old menopausal female with mild lichen sclerosis of the vulva which is well controlled. She has used Lotrisone cream with symptomatic improvement. 2. History of osteoporosis by 2022 bone density test. PLAN: 1. Pap smear was deferred since she had a negative Pap smear cotest on 08/17/2021. 2. Self breast awareness was discussed with the patient. We have also discussed symptoms associated with inflammatory breast cancer. 3. Screening mammogram will be done today. 4. Lotrisone cream as needed. The electronic prescription will be sent to [facility]. 5. Osteoporosis management was discussed. I have stressed the importance of adequate calcium, vitamin D and regular exercise. Recommended amounts of calcium and vitamin D were also discussed. She is interested in starting medication for her osteoporosis. She has already received information on osteoporosis and alendronate. She has the order slip for the serum creatinine and serum calcium. She will have these drawn and when I receive the results I will call in a prescription for alendronate if they are normal. She understands the alendronate should not be used she has upcoming extensive dental surgery such as implants or jaw surgery. 6. She was advised to return in one year for her annual well woman exam.
--- NOTE | 2022-10-11 12:07 | MM ---
Reason for Exam: Screening (asymptomatic). Last mammogram was performed 1 year(s) and 2 month(s) ago. Patient History: Menarche at age 12. First Full-Term at age 32. Late child-bearing (after 30). Postmenopausal. Hormonal Contraceptives for 10 years from age 19 until age 31. 02/01/2011, Benign Cyst Aspiration on the right side. 02/01/2011, Benign Cyst Aspiration on the right side. 02/01/2011, Benign Cyst Aspiration on the right side. 03/20/2009, Benign Excisional Biopsy on the left side. 03/09/2009, Benign Cyst Aspiration on the left side. 03/09/2009, Benign Core Biopsy on the left side. Sister had breast cancer, right, age 64. Risk Values: Columba 5 year model risk: 4.6%. NCI Lifetime model risk: 19.5%. Prior Study Comparison: 09/18/2018 Bilateral Screening Mammogram, [facility]. 12/24/2019 Bilateral Screening Mammogram, [facility]. 08/17/2021 Bilateral MG 3D screening mammo w/cad, [facility]. Tissue Density: The breast tissue is heterogeneously dense. This may lower the sensitivity of mammography. Findings: Analyzed By CAD. There is no suspicious group of microcalcifications or new suspicious mass in either breast. Overall Assessment: Negative, BI-RAD 1 Management: Screening Mammogram of both breasts in [address] [facility] will attempt to contact patient to return for supplemental views and ultrasound if indicated. Patient should continue monthly self-breast exams. A clinical breast exam by your physician is recommended on an annual basis. This exam should not preclude additional follow-up of suspicious palpable abnormalities. Note on Columba scores and lifetime risk: 1. A Columba score greater than 3% is considered moderate risk. If this is the case, consider specialist referral to assess eligibility for a risk reducing agent. 2. If overall lifetime risk for the development of breast cancer is 20% or higher, the patient may qualify for future screening with alternating mammogram and breast MRI. Electronically signed and approved by: Pablo Mar DO
== END ==
LOC: WWCWWP 09:11
PROVIDERS: ATTEND Obstetrics & Gynecology
DX: Z12.31 Encounter for screening mammogram for malignant neoplasm of breast (principal); M19.90 Unspecified osteoarthritis, unspecified site; E03.9 Hypothyroidism, unspecified; F17.210 Nicotine dependence, cigarettes, uncomplicated; M81.0 Age-related osteoporosis without current pathological fracture; Z78.0 Asymptomatic menopausal state; Z79.890 Hormone replacement therapy; Z80.3 Family history of malignant neoplasm of breast
CPT/HCPCS: 77063; 77067

== ENCOUNTER → 2022-12-19 | Outpatient (CLI) | payer MEDICAID ==
--- NOTE | 2022-12-19 15:56 | CT ---
EXAMINATION TYPE: CT abdomen pelvis wo con DATE OF EXAM: 12/19/2022 COMPARISON: 11/28/2017 HISTORY: Lt side flank pain CT DLP: 582.7 mGycm Examination of the solid and hollow viscera is limited given the lack of contrast. FINDINGS: LUNG BASES: No evidence for nodule. No evidence for infiltrate. LIVER/GB: The gallbladder is unremarkable. No space-occupying hepatic lesion. PANCREAS: No pancreatic mass identified. No inflammatory process seen. SPLEEN: No evidence for splenomegaly. No intrasplenic lesions seen. ADRENALS: No adrenal nodules identified. No evidence for thickening. KIDNEYS: No evidence for renal mass. Left UPJ calculus measuring 6.5 mm resulting in mild to moderate hydronephrosis. Mild left renal edema. No additional calculi seen. BOWEL: Appendix has a normal appearance. No evidence of bowel obstruction. No inflammatory process. Lymph nodes: No evidence for adenopathy greater than 1 cm. Abdominal aorta: Atheromatous changes seen. No evidence for aneurysm. Genital organs: No significant abnormality. Other: No significant abnormality. IMPRESSION: 1.Left UPJ calculus measuring 6.5 mm resulting in mild to moderate hydronephrosis. Mild left renal ed breana.
[2022-12-20 02:06] LABS: ALT 20 U/L (8-44); AST 22 U/L (13-35); Albumin 4.6 d/dL (3.8-4.9); Albumin/Globulin Ratio 1.77 Ratio (1.60-3.17); Alkaline Phosphatase 98 U/L (41-126); Amylase 70 U/L (23-121); Blood Urea Nitrogen 10.8 mg/dL (9.0-27.0); Calcium 9.5 mg/dL (8.7-10.3); Carbon Dioxide 26.3 mmol/L (21.6-31.8); Chloride 100 mmol/L (96-109); Globulin 2.6 d/dL (1.6-3.3); Glucose 90 mg/dL (70-110); Lipase 75 U/L (14-63); Potassium 4.1 mmol/L (3.5-5.5); Sodium 138 mmol/L (135-145); Total Bilirubin 0.5 mg/dL (0.3-1.2); Total Protein 7.2 d/dL (6.2-8.2)
== END | disposition home or self-care (01) ==
LOC: RADCTMAIN 15:35
PROVIDERS: ATTEND Family Medicine
DX: N13.2 Hydronephrosis with renal and ureteral calculous obstruction (principal); R60.0 Localized edema
CPT/HCPCS: 74176; 80053; 82150; 83690

== ENCOUNTER → 2022-12-22 | Outpatient (CLI) | payer MEDICAID ==
[2022-12-22 15:12] LABS: Basophils % (A) 1 %; Eosinophils # (A) 0.2 k/uL (0-0.7); Eosinophils % (A) 2 %; HCT 42.6 % (34.0-46.0); HGB 13.7 gm/dL (11.4-16.0); Lymphocytes # (A) 2.4 k/uL (1.0-4.8); Lymphocytes % (A) 32 %; MCH 31.5 pg (25.0-35.0); MCHC 32.2 g/dL (31.0-37.0); MCV 97.8 fL (80.0-100.0); Mean Platelet Volume 8.7; Monocytes # (A) 0.5 k/uL (0-1.0); Monocytes % (A) 6 %; Neutrophils # (A) 4.4 k/uL (1.3-7.7); Neutrophils % (A) 58 %; Platelet Count 214 k/uL (150-450); RBC 4.35 m/uL (3.80-5.40); WBC 7.7 k/uL (3.8-10.6)
[2022-12-22 15:17] LABS: African American GFR (CKD) 75 (>60 ml/min/1.73 sqM); Anion Gap 8 mmol/L; Blood Urea Nitrogen 18 mg/dL (7-17); Calcium 9.4 mg/dL (8.4-10.2); Carbon Dioxide 29 mmol/L (22-30); Chloride 102 mmol/L (98-107); Glucose 116 mg/dL (74-99); Non-African American GFR(CKD) 65 (>60 ml/min/1.73 sqM); Potassium 3.6 mmol/L (3.5-5.1); Sodium 139 mmol/L (137-145)
[2022-12-22 15:35] LABS: Appearance,Urine Cloudy (Clear); Bilirubin,Urine Negative (Negative); Blood,Urine Small (Negative); Color,Urine Yellow; Glucose,Urine (UA) Negative (Negative); Ketones,Urine Negative (Negative); Leukocyte Esterase,Urine Small (Negative); Mucus,Urine Many /hpf; Nitrite,Urine Negative (Negative); PH, Urine 5.5 (5.0-8.0); Protein,Urine 1+ (Negative); RBC,Urine 34 /hpf (0-5); Squamous Epithelial Cell,Urine 1 /hpf (0-4); Urobilinogen,Urine <2.0 mg/dL (<2.0); WBC,Urine 12 /hpf (0-5)
== END | disposition home or self-care (01) ==
LOC: LABPAT 13:42
PROVIDERS: ATTEND Urology
DX: Z01.812 Encounter for preprocedural laboratory examination (principal); N20.0 Calculus of kidney; R31.29 Other microscopic hematuria
CPT/HCPCS: 80048; 81001; 85025

== ENCOUNTER → 2023-03-06 | Outpatient (CLI) | payer MEDICAID | END | disposition home or self-care (01) | LOC: LABWHC1 09:22 | PROVIDERS: ATTEND Family Medicine | DX: E03.9 Hypothyroidism, unspecified (principal) | CPT/HCPCS: 36415; 84439; 84443 ==

== ENCOUNTER → 2023-09-05 | Outpatient (CLI) | payer MEDICAID | END | disposition home or self-care (01) | LOC: LABWHC1 11:32 | PROVIDERS: ATTEND Family Medicine | DX: E03.9 Hypothyroidism, unspecified (principal) | CPT/HCPCS: 36415; 84439; 84443 ==

== ENCOUNTER → 2024-02-26 | Outpatient (CLI) | payer MEDICAID ==
[2024-02-26 16:15] LABS: Basophils # (A) 0.07 X 10*3/uL (0.00-0.10); Basophils % (A) 0.8 %; Eosinophils # (A) 0.22 X 10*3/uL (0.04-0.35); Eosinophils % (A) 2.6 %; HCT 41.7 % (37.2-46.3); HGB 13.8 g/dL (12.0-15.0); Lymphocytes # (A) 2.99 X 10*3/uL (0.90-5.00); Lymphocytes % (A) 35.6 %; MCH 31.9 pg (27.0-32.0); MCHC 33.1 g/dL (32.0-37.0); MCV 96.3 FL (80.0-97.0); Mean Platelet Volume 10.4 FL (9.5-12.2); Monocytes # (A) 0.47 X 10*3/uL (0.20-1.00); Monocytes % (A) 5.6 %; NRBC Per 100 WBC 0.02 X 10*3/uL (0.00-0.01); Neutrophils # (A) 4.61 X 10*3/uL (1.80-7.70); Platelet Count 265 X 10*3/uL (140-440); RBC 4.33 X 10*6/uL (4.10-5.20); RDW 13.3 % (11.5-14.5); WBC 8.39 X 10*3/uL (4.50-10.00)
== END | disposition home or self-care (01) ==
LOC: LABWHC1 05:57
PROVIDERS: ATTEND Family Medicine
DX: Z00.00 Encounter for general adult medical examination without abnormal findings (principal); E03.9 Hypothyroidism, unspecified
CPT/HCPCS: 36415; 84439; 84443; 85025

== ENCOUNTER → 2024-03-01 | Outpatient (CLI) | payer MEDICAID ==
[2024-03-01 10:49] LABS: ALT 11 U/L (8-44); AST 14 U/L (13-35); Albumin 4.2 g/dL (3.8-4.9); Alkaline Phosphatase 77 U/L (41-126); Calcium 8.8 mg/dL (8.7-10.3); Carbon Dioxide 23.6 mmol/L (21.6-31.8); Chloride 105 mmol/L (96-109); Chol/HDL Ratio 1.86 Ratio; Glucose 88 mg/dL (70-110); Potassium 3.8 mmol/L (3.5-5.5); Sodium 139 mmol/L (135-145); Total Bilirubin 0.4 mg/dL (0.3-1.2); Total Protein 7.2 g/dL (6.2-8.2); VLDL Calculation 14.34 mg/dL (5.00-40.00)
== END | disposition home or self-care (01) ==
LOC: LABWHC1 07:09
PROVIDERS: ATTEND Family Medicine
DX: Z00.00 Encounter for general adult medical examination without abnormal findings (principal)
CPT/HCPCS: 36415; 80053; 80061

== ENCOUNTER → 2024-04-16 | Outpatient (CLI) | payer MEDICAID ==
[2024-04-16 14:11] VITALS: BP 114/74; PULSE 88; RESP 17; TEMP 98.1
--- NOTE | 2024-04-16 14:41 | P.HPOB ---
History of Present Illness H&P Date: 04/16/24 Chief Complaint: The patient is here for her routine gynecologic exam and ma mmogram. This is a 63-year-old -0-1-3 with an LMP of 2007. The patient is without gynecologic complaints. Review of Systems The patient has gained 8 pounds over the last year. She denies respiratory, cardiac, or G.I. problems. Past Medical History Past Medical History: Osteoarthritis (OA), Thyroid Disorder Additional Past Medical History / Comment(s): hypothyroidism, arthritis. Osteoporosis(Fosamax started 04/2024). [employer] HISTORY: She has no history of STDs. Lichen sclerosis of the vulva. History of Any Multi-Drug Resistant Organisms: None Reported Past Surgical History: Uterine Ablation Additional Past Surgical History / Comment(s): eye sx age 2 and 4, endometrial ablation in 2007. Left breast lumpectomy which was benign, cataract sx bilat eyes multiple times, last colonoscopy 2021(next after 3yr). Past Anesthesia/Blood Transfusion Reactions: No Reported Reaction Past Psychological History: Anxiety Smoking Status: Current every day smoker (10 cigarettes/day.) Past Alcohol Use History: None Reported Past Drug Use History: Marijuana (Not every day.) Additional History: She has been since 1993. 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 - Past Family History Sister(s) Family Medical History: Cancer Additional Family Medical History / Comment(s): Breast cancer. Mother Family Medical History: No Reported History Medications and Allergies Home Medications Medication Instructions Recorded Confirmed Type buPROPion SR [Wellbutrin SR] 150 mg PO HS 08/25/21 04/16/24 History Ibuprofen 400 mg PO Q6H PRN 12/22/22 04/16/24 History Levothyroxine Sodium [Synthroid] 88 mcg PO HS 12/22/22 04/16/24 History Alendronate Sodium [Fosamax] 70 mg PO WEEKLY 04/16/24 04/16/24 History Allergies Allergy/AdvReac Type Severity Reaction Status Date / Time No Known Allergies Allergy Verified 04/16/24 14:04 Exam Vital Signs Temp Pulse Resp BP Pulse Ox 04/16/24 14:08 98.1 F 88 17 114/74 96 Intake and Output 04/15/24 04/16/24 04/16/24 22:59 06:59 14:59 Other: Weight 89.358 kg Height 5 feet 10 inches, weight 197 pounds, BMI 28.3. This is a well-developed well-nourished white female who is alert and oriented times 3 in no acute distress. HEENT: Within normal limits. NECK: Supple without mass or thyromegaly. CHEST AND LUNGS: Clear to auscultation. HEART: Regular rate and rhythm. BREASTS: Are without mass or discharge. AXILLARY EXAM: Negative for adenopathy. BACK: Negative for CVA tenderness. ABDOMEN: Soft, nontender, without palpable masses. PELVIC EXAM: Normal external genitalia with mild atrophy. There is no evidence of pallor on exam today. Cervix and vagina appear normal with mild atrophy. There is no unusual discharge. There is no evidence of prolapse. The uterus is midposition, nongravid size and nontender. There are no palpable adnexal masses or tenderness. RECTAL EXAM: Rectovaginal exam is negative for mass or tenderness and is negative for occult blood. EXTREMITIES: Nontender. IMPRESSION: 1. 63-year-old menopausal female with normal gynecologic exam. 2. History of mild lichen sclerosus of the vulva with no significant physical findings on exam today. 3. History of osteoporosis and she is just recently started Fosamax as prescribed by her PCP. This was started at the beginning of April 2024. PLAN: 1. Pap smear deferred since she had a negative Pap smear cotest on 08/17/2021. 2. Self breast awareness was discussed with the patient. We have also discussed symptoms associated with inflammatory breast cancer. 3. Screening mammogram will be done today. 4. Osteoporosis management was discussed. I have stressed the importance of adequate calcium, vitamin D and regular exercise. Recommended amounts of calcium and vitamin D were also discussed. She understands the Fosamax is not a replacement for these things. We will plan on repeating the bone density test in 1 year. She will continue to use the Fosamax as prescribed by her PCP. 5. She was advised to return in one year for her annual well woman exam.
--- NOTE | 2024-04-16 15:01 | MM ---
Reason for Exam: Screening (asymptomatic). Last mammogram was performed 1 year(s) and 6 month(s) ago. Patient History: Menarche at age 12. First Full-Term at age 32. Late child-bearing (after 29). Postmenopausal. Hormonal Contraceptives for 10 years from age 19 until age 31. 02/01/2011, Benign Cyst Aspiration on the right side. 02/01/2011, Benign Cyst Aspiration on the right side. 02/01/2011, Benign Cyst Aspiration on the right side. 03/20/2009, Benign Excisional Biopsy on the left side. 03/09/2009, Benign Cyst Aspiration on the left side. 03/09/2009, Benign Core Biopsy on the left side. Sister had breast cancer, right, age 64. Risk Values: Columba 5 year model risk: 4.9%. NCI Lifetime model risk: 18.4%. Prior Study Comparison: 12/24/2019 Bilateral Screening Mammogram, [facility]. 08/17/2021 Bilateral MG 3D screening mammo w/cad, [facility]. 10/11/2022 Bilateral MG 3D screening mammo w/cad, [facility]. Tissue Density: The breasts are heterogeneously dense, which may obscure small masses. Findings: Analyzed By CAD. There are a few tiny benign-appearing round calcifications bilaterally redemonstrated. Benign-appearing bilateral axillary lymph nodes are again seen. There is no suspicious new group of microcalcifications or new suspicious mass in either breast. Overall Assessment: Benign, BI-RAD 2 Management: Screening Mammogram of both breasts in 1 year. . Patient should continue monthly self-breast exams. A clinical breast exam by your physician is recommended on an annual basis. This exam should not preclude additional follow-up of suspicious palpable abnormalities. Note on Columba scores and lifetime risk: 1. A Columba score greater than 3% is considered moderate risk. If this is the case, consider specialist referral to assess eligibility for a risk reducing agent. 2. If overall lifetime risk for the development of breast cancer is 20% or higher, the patient may qualify for future screening with alternating mammogram and breast MRI. [facility], , 04/16/2024 2:58 PM. Electronically signed and approved by: Rajendra Carrasquillo M.D.
== END ==
LOC: WWCWWP 13:47
PROVIDERS: ATTEND Obstetrics & Gynecology
DX: L90.0 Lichen sclerosus et atrophicus (principal); M81.0 Age-related osteoporosis without current pathological fracture; F17.210 Nicotine dependence, cigarettes, uncomplicated; Z80.3 Family history of malignant neoplasm of breast
CPT/HCPCS: 77063; 77067